=== PATIENT | female | born 1980 | race African-American/Black ===

== ENCOUNTER 2022-01-14 11:02 | Outpatient (CLI) | payer OTHER, SELFPAY ==
--- NOTE | ~2022-01-14 | XR_ITS ---
XR knee RT 2V DATE: 01/14/2022 11:50 INDICATION: Right knee pain TECHNIQUE: Standing AP, PA and lateral views COMPARISON: None FINDINGS: No fracture or dislocation or joint effusion. No periosteal reaction or bone destruction. N o radiopaque intra-articular loose body or chondrocalcinosis. Joint spaces are well preserved. IMPRESSION: No significant abnormality Reviewed, dictated and finalized at location A. IMPRESSION: No significant abnormality
== END 2022-01-14 11:03 ==
PROVIDERS: PCP Internal Medicine; Visit Provider Internal Medicine
DX: M25.561 Pain in right knee (principal); G89.29 Other chronic pain
CPT/HCPCS: 73560

== ENCOUNTER 2023-08-23 18:15 | Emergency (ER) | payer OTHER, MEDICAID, SELFPAY ==
--- NOTE | ~2023-08-23 | XR_ITS ---
EXAMINATION: XR chest 1V portable Exam Date/Time: 08/23/2023 20:22 CDT HISTORY: chest pain; Lt shoulder pain/numbness s/p endoscopy today Comparison: None. RESULT: Lines, tubes, and devices: None. Lungs and pleura: Clear. Cardiomediastinal silhouette: Normal. Other: No acute osseous or upper abdominal finding. Calcific tendinitis in the left shoulder. IMPRESSION: No acute cardiopulmonary process. Reviewed, dictated and finalized at location K.
[2023-08-23 18:30] VITALS: BP 150/80; PULSE 77; RESP 17; TEMP 36.8; O2SAT 100
--- NOTE | 2023-08-23 20:02 | ECG_ITS ---
Measurements Intervals [place] Rate: 64 P: 6 ND: 144 QRS: -6 QRSD: 94 T: 21 QT: 356 QTc: 369 Interpretive Statements SINUS RHYTHM NORMAL ECG NO PREVIOUS ECG AVAILABLE FOR COMPARISON Electronically Signed On 08-24-2023 6:20:38 CDT by Jerry Arroyo D.O.
--- NOTE | 2023-08-23 20:03 | ED.CHESTPAIN ---
HPI - Chest Pain General Chief Complaint: Extremity Problem,Nontraumatic Stated Complaint: L SHOULDER PAIN, FINGERS TINGLING AFTER ENDOSCOPY Time Seen by Provider: 08/23/23 19:53 History of Present Illness HPI narrative: Patient is a 43-year-old female with a history of diabetes, hyperlipidemia, hypertension presenting with left chest and shoulder pain. Patient states that she had an endoscopy and some other procedures done at an outside hospital earlier today. States that she went home and took a nap and when she woke up she had left chest and shoulder pain that is worse with movement. States that she also has tingling in her left fingers. States that her shoulder feels sore. States that she has had some left-sided neck pain for the last couple of days. No midline pain. No fevers or chills. No shortness of breath, diaphoresis, nausea or vomiting, palpitations, lightheadedness, weakness, speech changes, vision changes, leg swelling. No further complaints. Related Data Allergies Allergy/AdvReac Type Severity Reaction Status Date / Time No Known Allergies Allergy Verified 11/09/17 09:33 Review of Systems Review of Systems: All systems reviewed & are unremarkable except as noted in HPI and below Exam Narrative: GENERAL: Well-appearing, well-nourished, and in no acute distress. HEAD: Normocephalic, atraumatic. EYES: PERRLA and EOMI. ENT: Mucous membranes moist. NECK: Supple. no midline tenderness; mild tenderness of left paraspinal musculature CHEST: Clear to auscultation. No respiratory distress. tenderness with palpation of left chest wall into anterior left shoulder HEART: Regular rate and rhythm. ABDOMEN: Soft, nontender, nondistended EXTREMITIES: Normal range of motion though abduction of left shoulder causes pain, left shoulder w/ diffuse tenderness, otoniel anteriorly; distal ROM and pulses intact; no sensory deficits though she states her left fingers feel tingly SKIN: Warm, dry, no rash. NEURO: No focal deficits. Alert and oriented x3. as above PSYCH: Normal mood and affect. Course Vital Signs Vital signs: Vital Signs Temperature 98.3 F 08/23/23 18:30 Pulse Rate 77 08/23/23 18:30 Respiratory Rate 17 08/23/23 18:30 Blood Pressure 150/80 H 08/23/23 18:30 Pulse Oximetry 100 08/23/23 18:30 Oxygen Delivery Room Air 11/01/23 18:30 Temperature 98.3 F 08/23/23 18:30 Pulse Rate 77 08/23/23 18:30 Respiratory Rate 17 08/23/23 18:30 Blood Pressure 150/80 H 08/23/23 18:30 Pulse Oximetry 100 08/23/23 18:30 Oxygen Delivery Room Air 08/23/23 18:30 MDM - Chest Pain MDM Narrative Medical decision making narrative: 43-year-old female presenting with left chest, shoulder pain as well as tingling in her left fingers. Vital stable. Exam remarkable for the above. Blood work with leukocytosis, likely reactive from her procedure earlier today. Renal function is normal. Troponins undetectable x2. EKG per my interpretation shows normal sinus rhythm, no acute ischemic changes. On reevaluation, the patient is resting comfortably. She is stretching her left arm and states that this seems to help a bit. Suspect musculoskeletal pain. Patient is declining pain medications but she states that she is okay with a muscle relaxer. We will send in for prescription and advised close PCP follow-up. Strict return precautions given. Patient voiced understanding and is agreeable with plan. Discharged in stable condition. Differential Diagnosis Differential diagnosis: Likely atypical chest pain, costochondritis, chest pain and other (Shoulder pain, musculoskeletal pain, muscle spasms) Medical Records Data Attestation: I reviewed the patient's medical records. Lab Data Attestation: I reviewed the patient's lab results. 08/23/23 20:14 08/23/23 20:18 Labs: Lab Results 08/23/23 08/23/23 08/23/23 Range/Units 20:14 20:18 23:46 WBC 14.1 H (4.5-10.0) K/mm3 RBC
[2023-08-23] MEDS: SODIUM CHLORIDE 0.9% IV 1,000 ML 999 ML IV CONT (20:13)
[2023-08-23 20:26] LABS: Basophils Absolute Auto 0.1 K/mm3 (0.0-0.1); Basophils Percent Auto 0.6 % (0.2-1.2); Eosinophils Absolute Auto 0.3 K/mm3 (0-0.3); Eosinophils Percent Auto 2.1 % (0-4.4); Hematocrit 44.9 % (37.0-47.0); Hemoglobin 14.2 g/dL (12.0-15.0); Immature Granulocyte Absolute 0.04 K/mm3 (0.00-0.031); Immature Granulocyte Percent A 0.3 % (0-0.5); Lymphocytes Absolute Auto 4.39 K/mm3 (0.9-3.2); Lymphocytes Percent Auto 31.2 % (18.3-44.2); Mean Corpuscular HGB Conc 31.6 g/dl (32-36); Mean Corpuscular Volume 91.8 fl (80-100); Mean Platelet Volume 9.8 fl (7.4-10.4); Monocytes Percent Auto 6.9 % (2.6-8.5); Neutrophils Absolute Auto 8.3 K/mm3 (1.3-6.7); Neutrophils Percent Auto 58.9 % (45.5-73.1); Platelet Count Result 263 k/mm3 (150-375); Red Blood Count 4.89 M/mm3 (4.2-5.4); Red Cell Distribution Width 12.4 % (11.5-14.5); White Blood Count 14.1 K/mm3 (4.5-10.0)
[2023-08-23 20:37] LABS: Partial Thromboplastin Time 28.5 SECONDS (22.3-36.8); Prothrombin Time 13.7 Seconds (11.1-14.7)
[2023-08-23 20:43] LABS: Alanine Aminotransferase 44 U/L (6-35); Albumin Level 4.6 g/dL (3.5-5.1); Alkaline Phosphatase 102 U/L (38-126); Anion Gap 6 mmol/L (8-16); Aspartate Amino Transferase 39 U/L (14-36); Bilirubin,Total 0.7 mg/dL (0.2-1.3); Blood Urea Nitrogen 8 mg/dL (7-17); Calcium 10.1 mg/dL (8.4-10.2); Carbon Dioxide 31 mmol/L (22-30); Chloride 102 mmol/L (98-107); Estimated CRCL calculation 108 ml/min; Estimated Glomerular Filt Rate > 60; Glucose 156 mg/dL (65-110); Potassium 4.7 mmol/L (3.4-5.0); Sodium 139 mmol/L (137-145)
[2023-08-23 20:55] LABS: Troponin I < 0.012 ng/mL (0.000-0.034)
--- NOTE | 2023-08-23 23:27 | PC.NURSE ---
Report given to REJI Arauz. Care of pt transferred, all questions addressed.
[2023-08-24 00:20] LABS: Troponin I < 0.012 ng/mL (0.000-0.034)
[2023-08-24] MEDS: CYCLOBENZAPRINE HCL 10 MG TABLET PO (01:13)
== END 2023-08-24 01:16 | disposition home or self-care (01) ==
PROVIDERS: Emergency Provider Emergency Medicine; PCP Internal Medicine
DX: R07.89 Other chest pain (principal); M25.512 Pain in left shoulder; R20.2 Paresthesia of skin; E11.9 Type 2 diabetes mellitus without complications; E78.5 Hyperlipidemia, unspecified; I10 Essential (primary) hypertension
CPT/HCPCS: 36415; 71045; 80053; 84484; 85025; 85610; 85730; 93005; 96360; 96361; 99284; A9270; J7030